=== PATIENT | female | born 1985 | race Two or more races ===

== ENCOUNTER 2018-06-28 15:16 | Emergency (ER) | payer OTHER ==
[~2018-06-28] VITALS: Ht 157.5 cm; Wt 64.9 kg
[2018-06-28 16:22] LABS: Basophils # (auto) 0 uL; Basophils % (auto) 0.3 % (0.0-2.0); Eosinophils # (auto) 0.1 uL; Eosinophils % (auto) 1.1 % (0.0-7.0); Hematocrit 44.7 % (36.0-46.0); Hemoglobin 15.1 g/dL (12.2-16.2); Lymphocytes # (auto) 1.2 uL; Lymphocytes % (auto) 22.3 % (10.0-50.0); Mean Corpuscular Hemoglobin 30.2 pg (28.0-32.0); Mean Corpuscular Hgb Conc. 33.8 g/dL (32.0-36.0); Mean Corpuscular Volume 89.3 fL (80.0-100.0); Monocytes # (auto) 0.5 uL; Monocytes % (auto) 9.8 % (0.0-12.0); Neutrophils # (auto) 3.7 uL; Neutrophils % (auto) 66.5 % (37.0-80.0); Nucleated Red Blood Cells % 0.1 %; Platelet Count (auto) 271 10^3/uL (140-450); Red Blood Cells 5.01 10^6/uL (4.0-5.20); White Blood Cell 5.6 10^3/uL (4.4-10.8)
[2018-06-28 16:25] LABS: Urine Bacteria NONE SEEN /hpf (None Seen); Urine Blood Negative /uL (Negative); Urine Mucus FEW (None Seen); Urine Specific Gravity 1.023 (1.001-1.035); Urine WBC <1 /hpf (0 - 5)
[2018-06-28 16:32] LABS: Potassium 3.9 mmol/L (3.5-5.1)
[2018-06-28 16:35] LABS: BUN/Creatinine Ratio 23.2; Bilirubin, Total 0.4 mg/dL (0.2-1.0); Total Protein 7.5 g/dL (6.4-8.2)
[2018-06-28 19:39] VITALS: BP 135/72
[2018-06-28] MEDS ORDERED: SODIUM CHLORIDE 0.9% 500 ML IVB ONE (20:11)
[2018-06-28] MEDS ORDERED: MORPHINE SULFATE 10 MG/ML INJ 1ML SDV IV ONE (20:15)
[2018-06-28] MEDS ORDERED: ONDANSETRON HCL 4 MG/2 ML VIAL IV ONE (20:15)
== END 2018-06-28 22:00 | disposition home or self-care (01) ==
LOC: ER 15:20
DX: R10.84 Generalized abdominal pain (principal); R11.2 Nausea with vomiting, unspecified; R51 Headache; K59.00 Constipation, unspecified; F17.210 Nicotine dependence, cigarettes, uncomplicated; Z88.2 Allergy status to sulfonamides; Z88.6 Allergy status to analgesic agent
CPT/HCPCS: 36415; 74176; 80053; 81001; 81025; 85025; 96361; 96374; 96375; 99284; J2270; J2405; J7030

== ENCOUNTER 2018-08-05 19:46 | Emergency (ER) | payer MEDICAID ==
[~2018-08-05] VITALS: Ht 157.5 cm; Wt 67.6 kg
[2018-08-05 20:15] VITALS: BP 110/72
[2018-08-06] MEDS ORDERED: IBUPROFEN 800 MG TAB PO ONE
== END 2018-08-06 00:26 | disposition home or self-care (01) ==
LOC: ER 19:49
DX: H60.91 Unspecified otitis externa, right ear (principal); F17.210 Nicotine dependence, cigarettes, uncomplicated; Z88.2 Allergy status to sulfonamides; Z88.6 Allergy status to analgesic agent

== ENCOUNTER 2018-10-07 19:09 | Emergency (ER) | payer MEDICAID ==
[~2018-10-07] VITALS: Ht 157.5 cm; Wt 68.0 kg
[2018-10-07 20:57] VITALS: BP 132/74
[2018-10-07] MEDS ORDERED: KETOROLAC TROMETH 60MG/2ML VIAL IM ONE (21:15)
== END 2018-10-07 21:23 | disposition home or self-care (01) ==
LOC: ER 19:09
DX: S93.401A Sprain of unspecified ligament of right ankle, initial encounter (principal); S90.01XA Contusion of right ankle, initial encounter; V80.010A Animal-rider injured by fall from or being thrown from horse in noncollision accident, initial encounter; Y93.52 Activity, horseback riding; Y92.89 Other specified places as the place of occurrence of the external cause; Y99.8 Other external cause status
CPT/HCPCS: 73590; 73600; 73620; 81025; 96372; 99284; J1885

== ENCOUNTER 2021-03-30 15:27 | Emergency (ER) | payer SELFPAY ==
[~2021-03-30] VITALS: Ht 157.5 cm; Wt 64.9 kg
[2021-03-30 16:27] VITALS: BP 120/86
[2021-03-30 17:05] LABS: Basophils # (auto) 0 10 ^3/uL (0-0.2); Basophils % (auto) 0.5 % (0.0-2.0); Eosinophils # (auto) 0.1 10 ^3/uL (0-0.8); Eosinophils % (auto) 1.1 % (0.0-7.0); Hematocrit 39.4 % (36.0-46.0); Hemoglobin 12.9 g/dL (12.2-16.2); Lymphocytes # (auto) 1.1 10 ^3/uL (0.4-5.4); Lymphocytes % (auto) 16.4 % (10.0-50.0); Mean Corpuscular Hemoglobin 29.3 pg (28.0-32.0); Mean Corpuscular Hgb Conc. 32.7 g/dL (32.0-36.0); Mean Corpuscular Volume 89.5 fL (80.0-100.0); Monocytes # (auto) 0.6 10 ^3/uL (0-1.3); Monocytes % (auto) 9.5 % (0.0-12.0); Neutrophils # (auto) 4.7 10 ^3/uL (1.6-8.6); Neutrophils % (auto) 72.5 % (37.0-80.0); Nucleated Red Blood Cells % 0.1 %; Red Cell Distribution Width 13.5 % (11.8-14.3); White Blood Cell 6.5 10^3/uL (4.4-10.8)
[2021-03-30 17:33] LABS: BUN/Creatinine Ratio 36.2; Calcium 8.9 mg/dL (8.5-10.1); Potassium 3.9 mmol/L (3.5-5.1)
[2021-03-30] MEDS ORDERED: KETOROLAC TROMETH 60MG/2ML VIAL IM ONE (18:00)
== END 2021-03-30 18:42 | disposition home or self-care (01) ==
LOC: ER 15:27
DX: S61.412A Laceration without foreign body of left hand, initial encounter (principal); S61.411A Laceration without foreign body of right hand, initial encounter; M54.2 Cervicalgia; G89.29 Other chronic pain; M25.512 Pain in left shoulder; M25.511 Pain in right shoulder; Z88.2 Allergy status to sulfonamides; Z88.6 Allergy status to analgesic agent; Z88.8 Allergy status to other drugs, medicaments and biological substances; X58.XXXA Exposure to other specified factors, initial encounter; Y93.89 Activity, other specified; Y92.89 Other specified places as the place of occurrence of the external cause; Y99.8 Other external cause status
CPT/HCPCS: 36415; 72040; 80048; 85025; 96372; 99284; J1885

== ENCOUNTER 2021-08-25 01:23 | Emergency (ER) | payer MEDICAID ==
[~2021-08-25] VITALS: Ht 157.5 cm; Wt 63.5 kg
[2021-08-25 01:26] VITALS: BP 116/77
[2021-08-25] MEDS ORDERED: MAGIC MT (03:00)
== END 2021-08-25 03:19 | disposition home or self-care (01) ==
LOC: ER 01:23
DX: L03.211 Cellulitis of face (principal); F17.210 Nicotine dependence, cigarettes, uncomplicated; Z87.442 Personal history of urinary calculi; Z88.2 Allergy status to sulfonamides

== ENCOUNTER 2021-09-19 16:24 | Emergency (ER) | payer MEDICAID ==
[~2021-09-19] VITALS: Ht 157.5 cm; Wt 64.0 kg
[~2021-09-19 16:24] MED LIST: MAGIC MT
[2021-09-19 16:37] VITALS: BP 138/80
[2021-09-19] MEDS ORDERED: CEPH-509 PO (17:16)
== END 2021-09-19 18:43 | disposition home or self-care (01) ==
LOC: ER 16:24
DX: L03.114 Cellulitis of left upper limb (principal); F17.210 Nicotine dependence, cigarettes, uncomplicated; Z79.899 Other long term (current) drug therapy; Z88.2 Allergy status to sulfonamides; Z88.8 Allergy status to other drugs, medicaments and biological substances

== ENCOUNTER 2021-10-31 12:53 | Emergency (ER) | payer SELFPAY ==
[~2021-10-31] VITALS: Ht 157.5 cm; Wt 63.5 kg
[~2021-10-31 12:53] MED LIST changes: +CEPH-509 PO
[2021-10-31 20:35] VITALS: BP 132/93
== END 2021-10-31 20:40 | disposition home or self-care (01) ==
LOC: ER 12:55
DX: S50.01XA Contusion of right elbow, initial encounter (principal); F17.210 Nicotine dependence, cigarettes, uncomplicated; Z88.2 Allergy status to sulfonamides; Z88.6 Allergy status to analgesic agent; Z88.8 Allergy status to other drugs, medicaments and biological substances; W19.XXXA Unspecified fall, initial encounter; Y93.89 Activity, other specified; Y92.89 Other specified places as the place of occurrence of the external cause; Y99.8 Other external cause status
CPT/HCPCS: 73080

== ENCOUNTER 2022-01-10 00:42 | Emergency (ER) | payer MEDICAID ==
[~2022-01-10] VITALS: Ht 157.5 cm; Wt 62.0 kg
[2022-01-10 01:23] VITALS: BP 135/86
[2022-01-10] MEDS ORDERED: AZITTAB PO (04:19)
[2022-01-10] MEDS ORDERED: ALBUAER3 IN (04:19)
[2022-01-10] MEDS ORDERED: PROM1SOL4 PO (04:19)
== END 2022-01-10 04:25 | disposition home or self-care (01) ==
LOC: ER 01:07
DX: J45.909 Unspecified asthma, uncomplicated (principal); I10 Essential (primary) hypertension
CPT/HCPCS: 71045

== ENCOUNTER 2022-03-07 04:45 | Emergency (ER) | payer SELFPAY ==
[~2022-03-07] VITALS: Ht 160 cm; Wt 63.6 kg
[~2022-03-07 04:45] MED LIST changes: +ALBUAER3 IN; +AZITTAB PO; +PROM1SOL4 PO
[2022-03-07 06:08] LABS: BUN/Creatinine Ratio 29.7; Basophils # (auto) 0 10 ^3/uL (0-0.2); Basophils % (auto) 0.4 % (0.0-2.0); Calcium 9.4 mg/dL (8.5-10.1); Eosinophils # (auto) 0.1 10 ^3/uL (0-0.8); Hematocrit 39.6 % (36.0-46.0); Hemoglobin 13.4 g/dL (12.2-16.2); Lymphocytes # (auto) 2.2 10 ^3/uL (0.4-5.4); Lymphocytes % (auto) 24.3 % (10.0-50.0); Mean Corpuscular Hemoglobin 29.9 pg (28.0-32.0); Mean Corpuscular Hgb Conc. 33.9 g/dL (32.0-36.0); Mean Corpuscular Volume 88.3 fL (80.0-100.0); Monocytes # (auto) 0.7 10 ^3/uL (0-1.3); Monocytes % (auto) 7.9 % (0.0-12.0); Neutrophils # (auto) 6.1 10 ^3/uL (1.6-8.6); Neutrophils % (auto) 66.4 % (37.0-80.0); Potassium 3.7 mmol/L (3.5-5.1); Red Blood Cells 4.49 10^6/uL (4.0-5.20); Red Cell Distribution Width 13.2 % (11.8-14.3); White Blood Cell 9.2 10^3/uL (4.4-10.8)
[2022-03-07 06:11] LABS: Bilirubin, Total 0.2 mg/dL (0.2-1.0); Total Protein 7.2 g/dL (6.4-8.2)
[2022-03-07] MEDS ORDERED: MORPHINE SULFATE INJ 2 MG/ml SYRG IV ONE (07:45)
[2022-03-07] MEDS ORDERED: SODIUM CHLORIDE 0.9% 1,000 ML IV ONE ×2 (07:45)
[2022-03-07] MEDS ORDERED: PROCHLORPERAZINE EDISYLATE 5 MG/ML 2ML VIAL IV ONE (07:45)
[2022-03-07 09:29] LABS: Urine Bacteria NONE SEEN /hpf (None Seen); Urine Blood Negative /uL (Negative); Urine Mucus FEW (None Seen); Urine Specific Gravity 1.017 (1.001-1.035); Urine WBC <1 /hpf (0 - 5)
[2022-03-07 10:03] LABS: Barbiturate Scree,Urine NEGATIVE (NEGATIVE); Benzodiazephine Screen, Urine NEGATIVE (NEGATIVE); Cannabinoid Screen, Urine NEGATIVE (NEGATIVE)
[2022-03-07 10:06] LABS: Alcohol, Urine < 3.0 mg/dL (0-10); Amphetamine Screen, Urine NEGATIVE (NEGATIVE); Cocaine Screen, Urine NEGATIVE (NEGATIVE); Opiate Scree,Urine NEGATIVE (NEGATIVE); Phencyclidine Screen, Urine NEGATIVE (NEGATIVE)
[2022-03-07 13:00] VITALS: BP 126/79
== END 2022-03-07 13:15 | disposition home or self-care (01) ==
LOC: ER 04:45
DX: R10.84 Generalized abdominal pain (principal); K59.00 Constipation, unspecified; J45.909 Unspecified asthma, uncomplicated; I10 Essential (primary) hypertension; Z88.2 Allergy status to sulfonamides; Z88.6 Allergy status to analgesic agent
CPT/HCPCS: 36415; 80053; 80307; 81001; 81025; 83605; 83690; 85025; 96361; 96374; 96375; 99284; J0780; J2270; J7030

== ENCOUNTER 2022-03-13 23:08 | Emergency (ER) | payer MEDICAID ==
[~2022-03-13] VITALS: Ht 160 cm; Wt 120.0 kg
[2022-03-13 23:10] VITALS: BP 118/81
== END 2022-03-14 03:04 | disposition left against medical advice (07) ==
LOC: EDBD 23:08 → ER 23:16
DX: R11.10 Vomiting, unspecified (principal); Z53.21 Procedure and treatment not carried out due to patient leaving prior to being seen by health care provider

== ENCOUNTER 2022-04-05 19:24 | Emergency (ER) | payer MEDICAID ==
[~2022-04-05] VITALS: Ht 160 cm; Wt 63.0 kg
[2022-04-05 20:25] VITALS: BP 113/78
[2022-04-06] MEDS ORDERED: CLIN300C8 PO (00:59)
[2022-04-06] MEDS ORDERED: CEPH-510 PO (00:59)
[2022-04-06] MEDS ORDERED: cefTRIAXone SOD 1,000 MG VL IM ONE (01:00)
== END 2022-04-06 01:16 | disposition home or self-care (01) ==
LOC: ER 19:26
DX: L03.113 Cellulitis of right upper limb (principal); S60.561A Insect bite (nonvenomous) of right hand, initial encounter; W57.XXXA Bitten or stung by nonvenomous insect and other nonvenomous arthropods, initial encounter; Y93.89 Activity, other specified; Y92.89 Other specified places as the place of occurrence of the external cause; Y99.8 Other external cause status
CPT/HCPCS: 96372; 99283; J0696

== ENCOUNTER 2022-09-30 15:41 | Emergency (ER) | payer MEDICAID ==
[~2022-09-30] VITALS: Ht 157.5 cm; Wt 66.0 kg
[~2022-09-30 15:41] MED LIST changes: +CEPH-510 PO; +CLIN300C8 PO
[2022-09-30 17:15] LABS: Urine Bacteria NONE SEEN /hpf (None Seen); Urine Blood Negative /uL (Negative); Urine Mucus FEW (None Seen); Urine Specific Gravity 1.016 (1.001-1.035); Urine WBC <1 /hpf (0 - 5)
[2022-09-30] MEDS ORDERED: IBUP800T27 PO (17:28)
[2022-09-30] MEDS ORDERED: METH750T22 PO (17:28)
[2022-09-30 17:34] VITALS: BP 155/80
== END 2022-09-30 17:35 | disposition home or self-care (01) ==
LOC: ER 15:41
DX: S39.012A Strain of muscle, fascia and tendon of lower back, initial encounter (principal); I10 Essential (primary) hypertension; J45.909 Unspecified asthma, uncomplicated; G89.29 Other chronic pain; Z79.1 Long term (current) use of non-steroidal anti-inflammatories (NSAID); Z79.2 Long term (current) use of antibiotics; Z79.899 Other long term (current) drug therapy; Z88.2 Allergy status to sulfonamides; Z88.8 Allergy status to other drugs, medicaments and biological substances; X58.XXXA Exposure to other specified factors, initial encounter; Y93.89 Activity, other specified; Y92.89 Other specified places as the place of occurrence of the external cause; Y99.8 Other external cause status
CPT/HCPCS: 72100; 81001